=== PATIENT | male | born 1945 ===

== ENCOUNTER → 2022-07-25 | Outpatient (CLI) | payer MEDICARE ==
[2022-07-25 14:09] LABS: Creatinine Urine 45.5 mg/dL (27.00-270.00); Protein, Urine Quantitative 10.2 mg/dL (0.0-11.9)
[2022-07-25 14:11] LABS: Microalbumin, Urine Quant. 39.5 mg/L (0.000-20.000)
== END | disposition home or self-care (01) ==
LOC: LAB SHORT 06:00 → LAB 06:00
PROVIDERS: Internal Medicine Nephrology
DX: N18.30 Chronic kidney disease, stage 3 unspecified (principal); E55.9 Vitamin D deficiency, unspecified; N25.1 Nephrogenic diabetes insipidus; E78.00 Pure hypercholesterolemia, unspecified; R76.9 Abnormal immunological finding in serum, unspecified; R94.5 Abnormal results of liver function studies; R94.6 Abnormal results of thyroid function studies
CPT/HCPCS: 81050; 82043; 82570; 84156